=== PATIENT | female | born 1940 | race Caucasian/White ===

== ENCOUNTER 2017-05-17 10:08 | Emergency (ER) | payer MEDICARE ==
[2017-05-17] MEDS ORDERED: Aspirin Low Dose CHEW TAB* 81 MG PO ONE (12:54)
[2017-05-17 13:18] VITALS: BP 119/63
--- NOTE | 2017-05-17 13:31 | UC ---
General HPI - HPI Summary HPI Summary: PT WITH H/O COPD, HTN, HEART DZ, DM2. C/O ORAL PAIN. PT WAS SEEN AND TX FOR BRONCHITIS ON 05/07/17. TX - [facility], BACTRIM. PT REACTED VERY POORLY TO TX. SHAKEY, WEAK, FATIGUED, BL JAW PAIN AND SX OF ORAL THRUSH. PT STOPPED TX 5 DAYS INTO COURSE. FOR THE PAST WEAK HAS CONTINUED TO FEEL WEAKNESS/FATIGUE. PT PRESENTED TODAY D/T SX OF ORAL THRUSH. WHILE TRIAGING PT, NURSING STAFF NOTED DROP IN HR TOO 30'S, BP 112/28. NURSING IMMEDIATELY DID EKG. PT EKG REVEALED PVC'S BUT RATE HAD STABILIZED. NURSING CALLED ME TO THE ROOM TO SEE PT. PT DENIED CP, SOB, DIZZINESS, N/V. WHILE IN ROOM, PT HR AGAIN DROPPED TO LOW 4O'S, BP 112/30'S. ANOTHER EKG WAS DONE WHICH REVEALED DIFFUSE REPOLE ABNORMALITY, PACED RATE. PT STILL DENIED SX. - History of Current Complaint Chief Complaint: UCGeneralIllness Stated Complaint: ORAL COMPLAINT Time Seen by Provider: 05/17/17 12:21 Hx Obtained From: Patient Onset/Duration: Gradual Onset, Lasting Weeks Timing: Intermittent Episodes Lasting: Onset Severity: Moderate Current Severity: Moderate Associated Signs & Symptoms: Positive: Weakness. Negative: Abdominal Pain, Chest Pain, Dizziness, Diaphoresis, Nausea, SOB, Vomiting - Allergy/Home Medications Allergies/Adverse Reactions: Allergies Allergy/AdvReac Type Severity Reaction Status Date / Time No Known Allergies Allergy Verified 05/20/14 10:03 PMH/Surg Hx/FS Hx/Imm Hx Endocrine History: Diabetes Cardiovascular History: Cardiac Disease, Hypertension, Pacemaker/ICD Respiratory History: COPD - Surgical History Surgical History: Yes Surgery Procedure, Year, and Place: pacemaker, tubal, gallbladder, bladder repair x 2, tonsilectomy - Family History Known Family History: Positive: Cardiac Disease - Social History Alcohol Use: None Substance Use Type: None Smoking Status (MU): Never Smoked Tobacco Review of Systems Constitutional: Fatigue Skin: Negative ENT: Other - ORAL PAIN Respiratory: Negative Cardiovascular: Negative Gastrointestinal: Negative Neurological: Negative Psychological: Negative All Other Systems Reviewed And Are Negative: Yes Physical Exam Triage Information Reviewed: Yes Appearance: No Pain Distress, Ill-Appearing - PALE, Obese Vital Signs: Initial Vital Signs Temp 97.4 F 05/17/17 12:29 Resp 16 05/17/17 12:29 BP 112/38 05/17/17 12:29 Pulse Ox 99 05/17/17 12:29 Vital Signs Reviewed: Yes Eyes: Positive: Conjunctiva Clear. Negative: Discharge ENT: Positive: Hearing grossly normal. Negative: Muffled voice, Hoarse voice Neck: Positive: Supple Respiratory: Positive: Lungs clear, Normal breath sounds, No respiratory distress, No accessory muscle use Cardiovascular: Positive: Other: - IRREG, PALE Musculoskeletal Exam: Normal Neurological: Positive: Alert, Fatigued Psychological: Positive: Age Appropriate Behavior Skin: Positive: Other - PALE DRY Course/Dx - Differential Dx - Multi-Symptom Differential Diagnoses: Cardiac Ischemia Provider Diagnoses: ATYPICAL CP - R/O ACS, HYPOTENSION Discharge - Discharge Plan Condition: Guarded Disposition: TR[facility] Referrals: Jahaira Schumacher MD [Primary Care Provider] -
--- NOTE | 2017-05-17 14:45 | UC ---
Progress - Progress Note Progress Note: CALLED PT TO INFORM HER OF NEG RESULT ON RAPID FLU. LEFT MESSAGE. PLEASE GIVE RESULT IF SHE CALLS.
== END 2017-05-17 13:29 | disposition short-term general hospital (02) ==
LOC: UCCORT 10:08
DX: R07.89 Other chest pain (principal); K13.79 Other lesions of oral mucosa; R53.1 Weakness; R53.83 Other fatigue; I49.3 Ventricular premature depolarization; E11.9 Type 2 diabetes mellitus without complications; I10 Essential (primary) hypertension; J44.9 Chronic obstructive pulmonary disease, unspecified; E66.9 Obesity, unspecified; Z95.0 Presence of cardiac pacemaker; Z90.49 Acquired absence of other specified parts of digestive tract; Z90.89 Acquired absence of other organs
CPT/HCPCS: 93005; 99213; G0463